=== PATIENT | male | born 1990 | race Hispanic/Latino ===

== ENCOUNTER 2017-06-19 06:42 | Emergency (ER) | payer BC ==
[2017-06-19 07:07] VITALS: BP 130/73; PULSE 70; RESP 18; TEMP 98.1; O2SAT 99
[2017-06-19] MEDS ORDERED: cefTRIAXone (Rocephin) 250 mg Inj IM ONE (07:09)
--- NOTE | 2017-06-19 07:13 | ED PDOC ---
HPI: Male Pain Time Seen by Provider: 06/19/17 07:01 Chief Complaint (Nursing): Male Genitourinary History Per: Patient Onset/Duration Of Symptoms: Days (2) Current Symptoms Are (Timing): Still Present Severity: Mild Pain Scale Rating Of: 2 Quality Of Discomfort: Burning Additional Complaint(s): Burning on urination assoc with white dischargex 2 days. Has had unprotected sex. Past Medical History Vital Signs: Last Vital Signs Temp 98.1 F 06/19/17 06:59 Pulse 70 06/19/17 06:59 Resp 18 06/19/17 06:59 BP 130/73 06/19/17 06:59 Pulse Ox 99 06/19/17 06:59 - Medical History PMH: HIV - Family History Family History: States: Unknown Family Hx - Allergies Allergies/Adverse Reactions: Allergies Allergy/AdvReac Type Severity Reaction Status Date / Time No Known Allergies Allergy Verified 06/19/17 07:07 Review of Systems Constitutional: Negative for: Fever Gastrointestinal: Negative for: Abdominal Pain Genitourinary Male: Positive for: Dysuria, Penile Discharge. Negative for: Rash Physical Exam - Physical Exam Appears: Positive for: Non-toxic, No Acute Distress Skin: Positive for: Normal Color, Warm, DRY Male Genital Exam: Positive for: no hernia, urethral discharge. Negative for: testicular tenderness (R) - ECG O2 Sat by Pulse Oximetry: 99 Disposition - Clinical Impression Clinical Impression: Urethritis - Patient ED Disposition Is Patient to be Admitted: No Counseled Patient/Family Regarding: Diagnosis, Need For Followup - Disposition Referrals: [facility] [Outside] Disposition: Routine/Home Disposition Time: 07:13 Condition: FAIR Instructions: Nonspecific Urethritis in Men (ED)
[2017-06-19] MEDS ORDERED: Sterile Water 10 ML IV ONE (07:24)
[2017-06-19] MEDS ORDERED: cefTRIAXone (Rocephin) 250 mg Inj ONE (07:24)
== END 2017-06-19 08:06 | disposition home or self-care (01) ==
LOC: H.ER 06:42
DX: N34.2 Other urethritis (principal)
CPT/HCPCS: 96372; 99282; J0696